=== PATIENT | female | born 1950 | race Caucasian/White ===

== ENCOUNTER → 2020-02-11 | Outpatient (CLI) | payer MEDICARE ==
--- NOTE | 2020-02-12 15:25 | Diagnostic Imaging Report ---
TECHNIQUE: Magnetic resonance imaging of the RIGHT foot was performed WITHOUT injected contrast. HISTORY: Right foot pain, evaluate for osteomyelitis COMPARISON: None available. DISCUSSION: No fracture. Bone marrow edema and T1 replacement involving the phalanges of the fifth toe. The remainder of the bone marrow signal is normal. No fluid collections. Atrophy of the foot musculature. 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 Eric Díaz M.D. on 02/12/2020 3:21 PM
== END ==
LOC: CARD 12:47
PROVIDERS: ATTEND Podiatrist Foot & Ankle Surgery
DX: M86.071 Acute hematogenous osteomyelitis, right ankle and foot (principal); I70.202 Unspecified atherosclerosis of native arteries of extremities, left leg; I70.201 Unspecified atherosclerosis of native arteries of extremities, right leg
CPT/HCPCS: 93925